=== PATIENT | female | born 1955 | race Caucasian/White ===

== ENCOUNTER 2019-04-16 06:43 | Day surgery (SDC) | payer OTHER ==
[~2019-04-16] VITALS: Ht 172.7 cm; Wt 72.3 kg
[2019-04-16] MEDS ORDERED: FOSAMAX 70MG TA70 MG PO (08:54)
[2019-04-16] MEDS ORDERED: TIROSINT25 MC1 PO (08:54)
[2019-04-16 08:55] VITALS: BP 119/64; PULSE 72; TEMP 97.2
[2019-04-16] MEDS ORDERED: NORCO 325 MG-51 TAB PO (12:49)
[2019-04-16 13:06] VITALS: TEMP 97.5
[2019-04-16 13:52] VITALS: BP 121/54; PULSE 71
--- NOTE | 2019-04-16 13:52 | NUR ---
Patient returns to room 7 per cart from PACU and is awake and alert. Dressing dry on the right breast and axilla area. IV fluids infusing #20G LH and site is free of redness. Room air sats 100% and temp 97.6. Siderails up x2 and call light in reach. Family in the room. Encouraged to rest.
[2019-04-16 14:07] VITALS: BP 120/59; PULSE 67
--- NOTE | 2019-04-16 14:07 | NUR ---
Dressing remains dry and is sipping on water. Denies pain and states that the nausea is subsiding.
--- NOTE | 2019-04-16 14:09 | NUR ---
Initial visit; Patient and her thanked Recreation Therapy Aide for visit prior to her surgical procedure and offering encouragement and prayer for a successful surgery and thorough and rapid recovery.
[2019-04-16 14:22] VITALS: BP 130/61; PULSE 69
--- NOTE | 2019-04-16 14:22 | NUR ---
Eating crackers. Room air sats 98%.
[2019-04-16 14:37] VITALS: BP 114/62; PULSE 73
--- NOTE | 2019-04-16 14:37 | NUR ---
Tolerates water and crackers without nausea or vomiting. Denies pain.
--- NOTE | 2019-04-16 14:45 | NUR ---
Assisted up to the bathroom and gait is steady. Voids and returns to room. Denies pain or nausea.
--- NOTE | 2019-04-16 14:55 | NUR ---
IV discontinued and site is free of redness. Continues to deny pain or nausea.
--- NOTE | 2019-04-16 15:05 | NUR ---
Dismissal instructions signed and voices understanding of these. Given script for Coleman and instructed to take medication with snack.
--- NOTE | 2019-04-16 15:11 | NUR ---
Patient dismissed to home driven by spouse and taken to the front door per wheelchair and assisted into car by this RN with dismissal instructions in hand.
== END 2019-04-16 15:11 | disposition home or self-care (01) ==
LOC: SDCO 06:43
DX: C50.411 Malignant neoplasm of upper-outer quadrant of right female breast (principal); Z17.0 Estrogen receptor positive status [ER+]; J30.2 Other seasonal allergic rhinitis; E03.9 Hypothyroidism, unspecified; Z86.14 Personal history of Methicillin resistant Staphylococcus aureus infection; Z90.710 Acquired absence of both cervix and uterus; Z82.61 Family history of arthritis; Z83.3 Family history of diabetes mellitus; Z80.42 Family history of malignant neoplasm of prostate
CPT/HCPCS: A9541; J2405; J2704; J3010; J7120